=== PATIENT | female | born 1980 | race Caucasian/White ===

== ENCOUNTER → 2018-08-23 | Outpatient (CLI) | payer OTHER ==
[2018-08-22 13:13] VITALS: BMI 26.5
[2018-08-23 11:58] VITALS: BP 103/72; PULSE 74; RESP 16
--- NOTE | 2018-08-23 12:28 | P.CONS ---
History of Present Illness - Reason for Consult Consult date: 08/23/18 - Chief Complaint Lower neck and upper thoracic spine pain, bilateral shoulder pain - History of Present Illness This is a 29-year-old lady with history of increasing upper back and lower neck pain with radiation to both arms down to the mid forearm. The patient denies any numbness or tingling in the upper extremities. She denies any bowel or bladder dysfunction or any weakness in the upper or lower extremities. The patient's pain gets worse after prolonged day of [place] and she does work as as a corporate executive in a restaurant. The patient had an MRI on the cervical spine which showed right central disc extrusion with 5 mm of cranial migration and mild mass effect on the right ventral spinal cord right lateral recess AT the C6-C7 level. She also had an MRI on the right shoulder which showed supraspinatus tendinosis. The pain affects the patient's quality of sleep. She denies any weight loss. The patient had seen a neurosurgeon who recommended cervical epidural steroid injection at this point. The patient has been going to a chiropractic but never tried physical therapy previously. She used to take Percocet for her pain and last time was in June 2018. The patient has a history of Crohn's disease and she smokes half a pack to 1 pack of cigarettes a day. She denies taking any anticoagulants. Past Medical History Past Medical History: GERD/Reflux Additional Past Medical History / Comment(s): CROHN'S DISEASE. HERNIATED DISC IN NECK AND BACK. "LEAKY HEART VALVE" PER PT History of Any Multi-Drug Resistant Organisms: None Reported Past Surgical History: Adenoidectomy, Bowel Resection, Hysterectomy, Tonsillectomy, Uterine Ablation Additional Past Surgical History / Comment(s): COLONOSCOPY Past Anesthesia/Blood Transfusion Reactions: Previous Problems w/ Anesthesia Additional Past Anesthesia/Blood Transfusion Reaction / Comm: WOKE UP DURING COLONOSCOPY Past Psychological History: No Psychological Hx Reported Smoking Status: Current every day smoker Past Alcohol Use History: Occasional Additional Past Alcohol Use History / Comment(s): SMOKES < 1PPD SINCE AGE 15 Past Drug Use History: None Reported - Past Family History Father Family Medical History: Cancer Medications and Allergies Home Medications Medication Instructions Recorded Confirmed Type Ergocalciferol [Vitamin D2 50,000 units PO TH 08/22/18 08/23/18 History (DRISDOL)] Estradiol [Estradiol 0.06 MG Patch] 1 patch TOPICAL TH 08/22/18 08/23/18 History Famotidine [Pepcid AC] 10 mg PO DAILY 08/22/18 08/23/18 History Ondansetron [Zofran] 4 mg PO Q8HR PRN 08/22/18 08/23/18 History Promethazine [Phenergan] 25 mg PO DAILY PRN 08/22/18 08/23/18 History Allergies Allergy/AdvReac Type Severity Reaction Status Date / Time adhesive Allergy Rash/Hives Verified 08/23/18 11:44 NSAIDS (Non-Steroidal AdvReac HX ULCERS Verified 08/23/18 11:44 Anti-Inflamma MRI DYE Allergy Anaphylaxis Uncoded 08/23/18 11:44 Physical Exam Vitals: Vital Signs Pulse Resp BP Pulse Ox 08/23/18 11:45 74 16 103/72 97 - EENT Eyes: PERRLA - Respiratory Respiratory: bilateral: CTA - Cardiovascular Rhythm: regular - Integumentary Integumentary: no calor, no cellulitis, no cyanotic, no decreased turgor, no flushed, no jaundiced, no normal, no normal turgor, no pale, no rash, no ulcer - Neurologic Neuro exam of the upper extremities showed normal and symmetrical muscle strength. Normal biceps reflexes bilaterally Absent triceps reflex bilaterally Significant tenderness around the left trapezius muscle. Positive tenderness in the cervical paravertebral musculature bilaterally. She has normal range of motion of the shoulder joints bilaterally however with some pain. Normal range of motion of the cervical spine. Neurologic: CNII-XII intact - Psychiatric Psychiatric: A&O x's 3, appropriate affect, intact judgment & insight Assessment and Plan Plan: This is a 37-year-old lady with cervical disc herniation at the C6 7 level and bilateral shoulder and arms pain however without paresthesia in the upper extremities. The patient was referred to our clinic for a trial of cervical epidural steroid injection under fluoroscopic guidance. The patient denies taking any anticoagulants and she has no ALLERGIES to IV contrast dye except for MRI gadolinium. We will plan on doing cervical epidural steroid injection under fluoroscopic guidance. The procedure was explained to the patient and her questions were answered. I offered the patient to postpone the injection so she can try physical therapy first but she prefers to go with the injection first . I thank you for the referral.
== END | disposition home or self-care (01) ==
LOC: PNWHC3 11:40
PROVIDERS: ATTEND Anesthesiology
DX: M50.223 Other cervical disc displacement at C6-C7 level (principal); M25.511 Pain in right shoulder; M25.512 Pain in left shoulder; M79.602 Pain in left arm; M79.601 Pain in right arm; F17.210 Nicotine dependence, cigarettes, uncomplicated; Z88.6 Allergy status to analgesic agent
CPT/HCPCS: 99201

== ENCOUNTER 2020-10-22 14:20 | Emergency (ER) | payer OTHER ==
[2020-10-22 14:27] VITALS: RESP 18; TEMP 97.7
[2020-10-22] MEDS ORDERED: FAMOTIDINE 20 MG/2 ML VIAL IV STA (14:47)
[2020-10-22] MEDS ORDERED: diphenhydrAMINE 50 MG/ML 1 ML VIAL IVP STA (14:47)
--- NOTE | 2020-10-22 14:50 | ED ---
General Adult HPI - General Chief complaint: Allergic Reaction Stated complaint: Tremors Time Seen by Provider: 10/22/20 14:33 Source: patient, EMS, RN notes reviewed Mode of arrival: EMS - History of Present Illness Initial comments: 40-year-old female with a past medical history of GERD, Crohn's disease presents to the emergency room for a chief complaint of vaccine reaction. Patient reports that she had the first Pfizer covid vaccine about an hour and a half ago. Patient reports that about 2 minutes afterward she started to feel nauseous. States several minutes later she started to have tremors in her whole body. States that when she clenches she can get them to stop. States they have improved significantly and she is no longer having tremors in her hands. Tammy ent has not taken anything for this. Patient denies any sling of the left sore throat.Patient has no other complaints at this time including shortness of breath, chest pain, abdominal pain, nausea or vomiting, headache, or visual changes. - Related Data Home Medications Medication Instructions Recorded Confirmed Ergocalciferol [Vitamin D2 50,000 units PO TH 08/22/18 08/23/18 (DRISDOL)] Famotidine [Pepcid AC] 10 mg PO DAILY 08/22/18 08/23/18 Ondansetron [Zofran] 4 mg PO Q8HR PRN 08/22/18 08/23/18 Promethazine [Phenergan] 25 mg PO DAILY PRN 08/22/18 08/23/18 estradioL [Estradiol 0.06 MG Patch] 1 patch TOPICAL TH 08/22/18 08/23/18 Allergies Allergy/AdvReac Type Severity Reaction Status Date / Time adhesive Allergy Rash/Hives Verified 08/23/18 11:44 NSAIDS (Non-Steroidal AdvReac HX ULCERS Verified 08/23/18 11:44 Anti-Inflamma MRI DYE Allergy Anaphylaxis Uncoded 08/23/18 11:44 Review of Systems ROS Statement: Those systems with pertinent positive or pertinent negative responses have been documented in the HPI. ROS Other: All systems not noted in ROS Statement are negative. Past Medical History Past Medical History: GERD/Reflux Additional Past Medical History / Comment(s): CROHN'S DISEASE. HERNIATED DISC IN NECK AND BACK. "LEAKY HEART VALVE" PER PT History of Any Multi-Drug Resistant Organisms: None Reported Past Surgical History: Adenoidectomy, Bowel Resection, Hysterectomy, Tonsillectomy, Uterine Ablation Additional Past Surgical History / Comment(s): COLONOSCOPY Past Anesthesia/Blood Transfusion Reactions: Previous Problems w/ Anesthesia Additional Past Anesthesia/Blood Transfusion Reaction / Comment(s): WOKE UP DURING COLONOSCOPY Past Psychological History: No Psychological Hx Reported Smoking Status: Current every day smoker Past Alcohol Use History: Occasional Past Drug Use History: None Reported, Marijuana - Past Family History Father Family Medical History: Cancer General Exam General appearance: alert, in no apparent distress Head exam: Present: atraumatic, normocephalic, normal inspection Eye exam: Present: normal appearance, PERRL, EOMI. Absent: scleral icterus, conjunctival injection, periorbital swelling ENT exam: Present: normal exam Neck exam: Present: normal inspection, full ROM. Absent: tenderness, meningismus, lymphadenopathy Respiratory exam: Present: normal lung sounds bilaterally. Absent: respiratory distress, wheezes, rales, rhonchi, stridor Cardiovascular Exam: Present: regular rate, normal rhythm, normal heart sounds. Absent: systolic murmur, diastolic murmur, rubs, gallop, clicks GI/Abdominal exam: Present: soft, normal bowel sounds. Absent: distended, tenderness, guarding, rebound, rigid Extremities exam: Present: other (coarse tremors of trunk) Course Vital Signs 10/22/20 14:22 Temperature 97.7 F Pulse Rate 74 Respiratory 18 Rate Blood Pressure 124/79 O2 Sat by Pulse 99 Oximetry Medical Decision Making - Medical Decision Making HPI and physical exam as documented. Vitals are stable. Patient does have some tremors noted upon arrival. She was given Benadryl and Pepcid. These did completely resolve. Patient stable for discharge. I did discuss following up with her very care provider to discuss whether she should get the second immunization. If she has any worsening symptoms she will return here. Disposition Clinical Impression: Vaccine reaction, Coarse tremors Disposition: HOME SELF-CARE Condition: Good Instructions (If sedation given, give patient instructions): Tremors (ED) Additional Instructions: Please follow up with primary care in 1-2 days. Return to the emergency room for any worsening symptoms. If you develop any signs of ALLERGIC reaction such as one of the lips tongue or throat take Benadryl and return to the ER immediately. Is patient prescribed a controlled substance at d/c from ED?: No Referrals: Sam Little MD [Primary Care Provider] - 1-2 days Time of Disposition: 15:47
[2020-10-22] MEDS ORDERED: ONDANSETRON 4 MG/2 ML VIAL IVP STA (15:07)
[2020-10-22 15:57] VITALS: BP 95/60; PULSE 52
== END 2020-10-22 15:58 | disposition home or self-care (01) ==
LOC: EC 14:20
DX: T88.1XXA Other complications following immunization, not elsewhere classified, initial encounter (principal); R25.1 Tremor, unspecified; K21.9 Gastro-esophageal reflux disease without esophagitis; F17.200 Nicotine dependence, unspecified, uncomplicated; Z90.710 Acquired absence of both cervix and uterus; Z90.09 Acquired absence of other part of head and neck
CPT/HCPCS: 99283; 96374; 96375 ×2; J1200; J2405

== ENCOUNTER 2024-03-29 11:06 | Day surgery (SDC) | payer OTHER ==
[2024-03-29 11:33] VITALS: TEMP 97
[2024-03-29] MEDS: IV FLUID CONTINUATION 1,000 ML IV ONE (11:47)
[2024-03-29] MEDS: LACTATED RINGERS 1,000 ML IV SCH (11:48)
[2024-03-29] MEDS ORDERED: PROPOFOL 10 MG/ML 20 ML VIAL IV ONE (13:29)
--- NOTE | 2024-03-29 13:49 | P.PCN ---
Date of Procedure: 03/29/24 Procedure(s) Performed: BRIEF HISTORY: Patient is a 43-year-old pleasant white female scheduled for an elective colonoscopy as a part of evaluation for Crohn's a disease that was diagnosed in 2014. She is s/p terminal ileum resection in 2016. She has been have been on Humira in the past but recently has been on Entyvio since 2019. Only recently had a flareup and was treated with prednisone and is scheduled for a colonoscopy to evaluate further. PROCEDURE PERFORMED: Colonoscopy. PREOPERATIVE DIAGNOSIS: Longstanding history of Crohn's disease recent flareup. IV sedation per Anesthesia. PROCEDURE: After informed consent was obtained, the patient, was brought into the endoscopy unit. IV sedation was administered by Anesthesia under continuous monitoring. Digital rectal examination was normal. Initially the Olympus CF-160 flexible video colonoscope was then inserted in the rectum, gradually advanced into the right colon without any difficulty. Careful examination was performed as the scope was gradually being withdrawn. The ileocolic anastomosis visualized that appeared widely patent and normal. The scope was advanced to the distal ileum at 20 cm visualized and appeared normal. Mucosa of the ascending colon, transverse colon, descending colon, sigmoid colon, and rectum appeared normal. Retroflexion was performed in the rectum and no lesions were seen biopsies were done from the ileocolic anastomosis and in the transverse colon. The patient tolerated the procedure well. IMPRESSION: Normal-appearing colon from rectum to ileocolic anastomosis in the right colon and normal distal ileum with no evidence of active Crohn's disease. RECOMMENDATIONS: Findings of this examination were discussed with the patient as well as her family. She was advised to follow-up with the biopsy results. She will be seen in the office in 2 weeks..
[2024-03-29 14:03] VITALS: RESP 18
[2024-03-29 14:12] VITALS: BP 104/67; PULSE 70
== END 2024-03-29 14:49 | disposition home or self-care (01) ==
LOC: ORWHC2ENDO 11:06
PROVIDERS: ATTEND Internal Medicine Gastroenterology
DX: K50.90 Crohn's disease, unspecified, without complications
CPT/HCPCS: 45380; 88305

== ENCOUNTER 2025-01-29 13:22 | Day surgery (SDC) | payer OTHER ==
[2025-01-29] MEDS: IV FLUID CONTINUATION 1,000 ML IV ONE (13:43)
[2025-01-29 13:55] VITALS: RESP 16; TEMP 97.8
[2025-01-29] MEDS: LACTATED RINGERS 1,000 ML IV SCH (14:01)
[2025-01-29] MEDS: ONDANSETRON 4 MG/2 ML VIAL IVP STA (14:01)
[2025-01-29] MEDS ORDERED: MIDAZOLAM 2 MG/2 ML VIAL ONE (14:21)
[2025-01-29] MEDS ORDERED: LIDOCAINE 1% INJ 10MG/ML (20 ML MDV) ONE (14:21)
[2025-01-29] MEDS ORDERED: PROPOFOL 10 MG/ML 20 ML VIAL IV ONE (14:21)
--- NOTE | 2025-01-29 14:46 | P.PCN ---
Date of Procedure: 01/29/25 Procedure(s) Performed: BRIEF HISTORY: Patient is a 44-year-old, pleasant, white female scheduled for an upper endoscopy as a part of evaluation of chronic persistent nausea and abnormal findings on recent CT of the abdomen that showed a 1 cm mural nodule in the 2nd and 3rd part of the duodenum.. PROCEDURE PERFORMED: Esophagogastroduodenoscopy with biopsy.. PREOPERATIVE DIAGNOSIS: Nausea and abnormal CAT scan IV sedation per anesthesia. PROCEDURE: After informed consent was obtained, the patient was brought into the endoscopy unit. IV sedation was administered by Anesthesia under continuous monitoring. Initially the Olympus GIF-140 video endoscope was inserted into the mouth. Esophagus intubated without any difficulty. It was gradually advanced into the stomach and duodenum and carefully examined. The bulb second and the third part of the duodenum appeared normal. The scope was advanced up to the ligament of Treitz which also appeared normal. The scope at this time was withdrawn to the stomach, adequately insufflated with air, and upon careful examination, mucosa of the antrum, had scattered erosions and biopsies were done from this area. Mucosa of the body, cardia and the fundus appeared normal. The scope was then withdrawn into the esophagus. Small hiatal hernia noted. The GE junction was located at 39 cm from the incisors. The esophagus appeared normal. There were no erosions or ulcerations seen and the patient tolerated the procedure well. IMPRESSION: 1. Antral erosive gastritis. 2. Small hiatal hernia 3. No abnormalities noted in the 2nd and 3rd part of the duodenum. RECOMMENDATIONS: The findings of this examination were discussed with the patient as well as her family. She was advised to follow-up with the biopsy results. Continue with Zofran as needed and follow-up in the office in 3 to 4 weeks..
[2025-01-29 15:10] VITALS: BP 109/65; PULSE 68
== END 2025-01-29 15:25 | disposition home or self-care (01) ==
LOC: ORWHC2ENDO 13:22
PROVIDERS: ATTEND Internal Medicine Gastroenterology
DX: K29.50 Unspecified chronic gastritis without bleeding (principal); K44.9 Diaphragmatic hernia without obstruction or gangrene; K20.90 Esophagitis, unspecified without bleeding; K21.9 Gastro-esophageal reflux disease without esophagitis; K50.90 Crohn's disease, unspecified, without complications; F17.290 Nicotine dependence, other tobacco product, uncomplicated; Z88.6 Allergy status to analgesic agent; Z88.7 Allergy status to serum and vaccine; Z88.8 Allergy status to other drugs, medicaments and biological substances; Z79.899 Other long term (current) drug therapy
CPT/HCPCS: 88305; 43239; J2250; J2405; J2003; J2704